=== PATIENT | female | born 1935 | race Caucasian/White ===

== ENCOUNTER 2021-12-30 09:39 | Inpatient (IN) | payer OTHER ==
[2021-12-30 10:20] LABS: SARS-CoV-2 Antigen Rapid Res Negative (Negative)
[2021-12-30] MEDS ORDERED: FUROSEMIDE 20 MG/ 2ML VIAL IV ONE (12:11)
--- NOTE | 2021-12-30 14:10 | RAD REPORT ---
EXAM DESCRIPTION: Len [facility] [place] (2 Views)12/30/2021 1:40 pm CLINICAL HISTORY: Atrial fibrillation COMPARISON: 2017 FINDINGS: The lungs appear clear of acute infiltrate. The heart is mildly to moderately enlarged
[2021-12-30 14:12] LABS: Hematocrit 44.2 % (36.0-45.0); MCV 94.3 fL (80-100); RBC Red Blood Cell Count 4.69 M/uL (3.86-4.86)
[2021-12-30 14:34] LABS: Albumin 3.8 g/dL (3.4-5.0); Bilirubin Total 0.7 mg/dL (0.2-1.0); Magnesium 2.2 mg/dL (1.8-2.4); Potassium 4.9 mmol/L (3.5-5.1); Protein, Total 7.7 g/dL (6.4-8.2)
[2021-12-30 14:42] VITALS: BMI 25.7
[2021-12-30 14:44] LABS: Thyroid Stimulating Hormone 1.04 uIU/mL (0.360-3.740)
[2021-12-30] MEDS ORDERED: ASPIRIN EC 81 MG TAB PO ONE (18:48)
--- NOTE | 2021-12-30 19:59 | HP ---
Date of Admission: 12/30/2021 Chief Complaint: Shortness of breath. History Of Present Illness: This is an 86-year-old very pleasant female patient, came into office to day with her daughter with 1-week history of worsening problem of shortness of breath. The patient r eports having shortness of breath at rest and with minimal daily activity, for example, walking 5 to 10 steps in the room also causes her to have shortness of breath. She denies any chest pain. No vom iting. No diarrhea. No blood in stool. After she was evaluated in the office, decision was made to admit her to hospital, with congestive heart failure problem. The patient has gained about 4-5 poun ds weight in last month or so. Allergies: TO PREVACID CAUSING DIARRHEA; EVISTA MADE HER TO FEEL HYPER; RISEDRONATE CAUSED BACK PAIN ; AND HYDROCHLOROTHIAZIDE, DETAILS UNKNOWN. Medications: Atorvastatin 20 mg daily, aspirin 81 mg daily, gabapentin 300 mg 4 times a day, metopro lol tartrate 50 mg 2 times a day, olmesartan 30 mg daily, pantoprazole 40 mg 2 times a day, tramadol 50 mg daily, hydrocodone 10 mg 3 times a day as needed. Review of Systems: Musculoskeletal: Chronic back pain and joint pain. All other systems reviewed and negative. Past Medical History: Significant for hypertension, hyperlipidemia, chronic atrial fibrillation, gas troesophageal reflux disease, diverticulosis, osteoarthritis at multiple sites, osteopenia. Past Surgical History: Watchman procedure done on April 02, 2021; partial hysterectomy; cervical s pine surgery; hip surgery; surgery for varicose vein of the right leg. Family History: Father , had lung cancer. Mother had coronary artery disease and aortic aneurys m. Brother also had aortic aneurysm. Son had aortic aneurysm. Social History: Negative for smoking. Use of alcohol very rarely. Physical Examination: VITAL SIGNS: Blood pressure 162/91, pulse 110, temperature 97.4, respiratory rate 18. Weight 132 po unds, height 63 inches. General: Awake, alert, oriented, not in distress. HEENT: Head atraumatic, normocephalic. Conjunctivae nonerythematous. Sclerae white. Mouth, no thr ush or edema noted. Ears/Nose, no mass, lesion, discharge noted. Neck: Supple. No JVD, lymph nodes, bruit, thyromegaly noted. Lungs: Diminished air entry in lower lung newman. Not using any accessory muscles of respiration at rest. Heart: Normal heart sounds, no murmur or gallop. Abdomen: Soft, bowel sounds normal. No guarding, rigidity, tenderness, mass, hepatosplenomegaly, dis tention, or bruit noted. Extremities: Bilateral leg trace edema involving lower half. Skin: No rash, ulcer, cellulitis. Lymphatics: No lymph node enlargement in neck, supraclavicular, infraclavicular region. Neuro: No focal neurological deficit. Chest: Unremarkable. External Genitalia: Deferred. Rectal: Deferred. Laboratory Data: Sodium 138, potassium 4.9, chloride 103, bicarb 30, BUN 15, creatinine 0.77, glucos e 104. Troponin 73.3. ProBNP 11,570. TSH 1.04. White count 7.2, hemoglobin 14.6, platelets 256. Chest x-ray did not show any acute changes. Impression: 1.Congestive heart failure. 2.Chronic atrial fibrillation. 3.Hypertension. 4.Hyperlipidemia. 5.Osteoarthritis, multiple sites. 6.Gastroesophageal reflux disease. 7.Diverticulosis. Plan: We will go ahead and admit the patient to hospital for further evaluation and management of th is problem. The patient is appropriate for inpatient and [facility] We will treat on telemetry. Consult rebeamer for abnormal cardiac enzymes. We will go ahead and give her aspirin 81 mg daily and Lovenox 40 mg subcu injection daily at bedtime. Continue home medications for blood pressure and cholesterol as per order. We will monitor blood pressure, if nece ssary, adjust antihypertensive medication. For gastroesophageal reflux disease, we will continue her proton pump inhibitor therapy. We will start her on IV Lasix 20 mg IV 2 times a day, monitor electr olytes, renal function. We will get echo with Doppler tomorrow. Details and plan of treatment discu ssed with the patient and her daughter who was at the office with her. I did talk to the patient reg arding advance directives and according to her decision, DNR order was written in the chart. RITA/MODL Voice ID: [id number]
[2021-12-30] MEDS: HYDROCODONE/APAP 10/325 TAB PO SCH (20:12)
[2021-12-30] MEDS: ENOXAPARIN 40 MG/0.4 ML SQ SCH (20:12)
[2021-12-30] MEDS: GABAPENTIN 300 MG CAP PO SCH (20:12)
[2021-12-30] MEDS: FUROSEMIDE 20 MG/ 2ML VIAL IV SCH (20:13)
[2021-12-30] MEDS: METOPROLOL TAR 50 MG TAB PO SCH (20:16)
[2021-12-31 01:09] VITALS: O2SAT 98
--- NOTE | 2021-12-31 07:07 | ECHO ---
HEIGHT: 5 ft 0 in WEIGHT: 132 lb 0 oz DATE OF STUDY: 12/30/[address]: Hima Austin MD 2-DIMENSIONAL: YES M.MODE: YES DOPPLER: YES COLOR FLOW: YES TDS: NO PORTABLE: YES DEFINITY: NO BUBBLE STUDY: NO DIAGNOSIS: CONGESTIVE HEART FAILURE CARDIAC HISTORY: CATHERIZATION: NO SURGERY: NO PROSTHETIC VALVE: NO PACEMAKER: NO MEASUREMENTS (cm) DIASTOLIC (NORMALS) SYSTOLIC (NORMALS) IVSd 1.2 (0.6-1.2) LA Diam 2.6 (1.9-4.0) LVEF 25-30% LVIDd 3.0 (3.5-5.7) LVIDs 2.2 (2.0-3.5) %FS % LVPWd 1.2 (0.6-1.2) Ao Diam 2.4 (2.0-3.7) 2 DIMENSIONAL ASSESSMENT: RIGHT ATRIUM: NORMAL LEFT ATRIUM: ENLARGED RIGHT VENTRICLE: NORMAL LEFT VENTRICLE: DEPRESSED EJECTION FRACTION TRICUSPID VALVE: MODERATE TRICUSPID REGURGITATION MITRAL VALVE: HEAVILY CALCIFIED VALVE PULMONIC VALVE: MILD PULMONIC INSUFFICIENCY AORTIC VALVE: MILD AORTIC INSUFFICIENCY PERICARDIAL EFFUSION: NONE AORTIC ROOT: NORMAL LEFT VENTRICULAR WALL MOTION: SEVERE GLOBAL HYPOKINESIS. APICAL DYSKINESIS. DOPPLER/COLOR FLOW: SEE BELOW. COMMENTS: SEVERELY DEPRESSED LEFT VENTRICULAR EJECTION FRACTION 25-30%. WALL MOTION ABNORMALITY ABOVE. HEAVILY CALCIFIED MITRAL VALVE WITH MODERATE MITRAL REGURGITATION. MILD AORTIC INSUFFICIENCY. MODERATE TRICUSPID REGURGITATION. SEVERE DIASTOLIC DYSFUNCTION WITH ELEVATED FILLING PRESSURES. SEVERE PULMONARY HYPERTENSION WITH RIGHT VENTRICUAR SYSTOLIC PRESSURE GREATER THAN 60mmHg. LEFT ATRIAL ENLARGEMENT. TECHNOLOGIST: SHIRA WADE
[2021-12-31 07:36] LABS: Magnesium 2.1 mg/dL (1.8-2.4); Potassium 3.8 mmol/L (3.5-5.1)
[2021-12-31] MEDS ORDERED: POTASSIUM CL SA 10 MEQ TAB PO ONE (08:05)
[2021-12-31] MEDS ORDERED: [UNRECOGNIZED DRUG - OTHER] PO SCH (09:00)
[2021-12-31] MEDS ORDERED: hydroCHLOROthiazide 12.5 MG CAP PO SCH (09:00)
[2021-12-31] MEDS ORDERED: HYDROCHLOROTHIAZIDE PO SCH (09:00)
[2021-12-31] MEDS ORDERED: OLMESARTAN PO SCH (09:00)
[2021-12-31] MEDS: ATORVASTATIN 20 MG TAB PO SCH (09:01)
[2021-12-31] MEDS: VALSARTAN 160 MG TAB PO SCH (09:01)
[2021-12-31] MEDS: GABAPENTIN 300 MG CAP PO SCH ×3 (09:01→20:25)
[2021-12-31] MEDS: HYDROCODONE/APAP 10/325 TAB PO SCH ×3 (09:01→20:25)
[2021-12-31] MEDS: ASPIRIN EC 81 MG TAB PO SCH (09:01)
[2021-12-31] MEDS: TRAMADOL HCL 50 MG TAB PO SCH (09:02)
[2021-12-31] MEDS: FUROSEMIDE 20 MG/ 2ML VIAL IV SCH ×2 (09:02→20:26)
[2021-12-31] MEDS: PANTOPRAZOLE 40MG TABLET PO SCH (09:07)
--- NOTE | 2021-12-31 20:08 | PN ---
Date of Progress Note: 12/31/2021 Subjective: The patient was seen this morning for followup. No new complaints or problems reported by her. She was lying in bed, not in distress. Objective: Vital Signs: Reviewed. HEENT: Unremarkable. Lungs: Clear to auscultation. No wheezing. No rales. Heart: Sounds normal. Irregular heart rhythm consistent with atrial fibrillation. Abdomen: Soft. Bowel sounds normal. No guarding, rigidity, tenderness, distention. Extremities: No leg edema. Impression: 1.Chronic atrial fibrillation. 2.Congestive heart failure. 3.Hypertension. Plan: We will go ahead and follow up with ship runner. Cardiac enzymes were abnormal yesterday. W e will repeat cardiac exam this morning. Continue Lovenox and aspirin per order. Continue Lasix and the patient will have echocardiogram done today. We will follow up on results and I will see her to jacqueline for followup. RITA/MODL Voice ID: [id number] Report ID: [id number]
[2021-12-31] MEDS: METOPROLOL TAR 50 MG TAB PO SCH (20:25)
[2021-12-31] MEDS: ENOXAPARIN 40 MG/0.4 ML SQ SCH (20:25)
[2021-12-31] MEDS: ENSURE ENLIVE 237 ML CAN PO SCH (20:27)
--- NOTE | 2022-01-01 06:02 | EKG ---
Test Date: 2021-12-30 Test Time: 13:07:37 Project Manager Senior: YUUSF MEASUREMENT RESULTS: Intervals: Rate: 98 ID: QRSD: [id number] QT: 380 QTc: 485 [place]: P: ID: [id number] T: 87 INTERPRETIVE STATEMENTS: Undetermined rhythm Left bundle branch block Abnormal ECG Compared to ECG 01/06/2017 22:47:32 Left bundle-branch block now present Sinus rhythm no longer present Ventricular premature complex(es) no longer present Short ID interval no longer present Electronically Signed On 01-01-22 06:00:04 CDT by Vincent Cordero
[2022-01-01 08:39] VITALS: BP 142/82; TEMP 97.2
[2022-01-01] MEDS: FUROSEMIDE 20 MG/ 2ML VIAL IV SCH (09:00)
[2022-01-01] MEDS: PANTOPRAZOLE 40MG TABLET PO SCH (09:23)
[2022-01-01] MEDS: VALSARTAN 160 MG TAB PO SCH (09:23)
[2022-01-01] MEDS: ATORVASTATIN 20 MG TAB PO SCH (09:23)
[2022-01-01] MEDS: TRAMADOL HCL 50 MG TAB PO SCH (09:23)
[2022-01-01] MEDS: ASPIRIN EC 81 MG TAB PO SCH (09:23)
[2022-01-01] MEDS: GABAPENTIN 300 MG CAP PO SCH (09:24)
[2022-01-01] MEDS: ENSURE ENLIVE 237 ML CAN PO SCH (09:24)
[2022-01-01] MEDS: HYDROCODONE/APAP 10/325 TAB PO SCH (09:24)
--- NOTE | 2022-01-02 02:21 | DS ---
Date of Discharge: 01/01/2022 Physical Examination: HEENT: Unremarkable. Lungs: Clear to auscultation. Heart: Sounds normal. Abdomen: Soft. Bowel sounds normal. No guarding, rigidity, tenderness, or distention. Extremities: No leg edema. Laboratory Data: White count 7.2, hemoglobin 14.6, and platelets 250. Chemistry: Yesterday sodium 136, potassium 3.8, chloride 100, bicarb 30, BUN 12, creatinine 0.72, glucose 100. Initial troponin 73.3, repeat troponin 89.1. ProBNP 11,570. Echocardiogram done during this hospitalization, which was done yesterday, shows ejection fraction 25%-30%. EKG had shown undetermined left bundle-branch block. Hospital Course: This is an 86-year-old pleasant female patient, admitted to the hospital with complaints of shortness of breath. Please see dictated H and P for more information. After patient was evaluated at the office, she was admitted to the hospital and the patient was admitted to the hospital with congestive heart failure problem. The patient has chronic atrial fibrillation and Cardiology consultation was requested. Echocardiogram showed significantly low ejection fraction. She received IV Lasix during this hospitalization and overall her condition has improved and shortness of breath has improved. Medically, she is stable for discharge. Final Diagnoses: 1. Congestive heart failure, chronic, systolic, with acute exacerbation. 2. Chronic atrial fibrillation. 3. Hypertension. 4. Hyperlipidemia. 5. Osteoarthritis, multiple sites. 6. Gastroesophageal reflux disease. 7. Diverticulosis. Discharge Medications And Instructions: 1. Continue prior home medication except stop olmesartan. 2. Start Entresto 24/26 mg 1 tablet 2 times a day. 3. Start furosemide 40 mg, take 1 tablet by mouth daily. 4. Follow up at my office next week. RITA/MODL Voice ID: [id number] Report ID: [id number] JOANA
--- NOTE | 2022-01-02 21:02 | CON ---
Date of Consultation: 12/31/2021 I saw the patient on 12/31/2021. Reason For Consultation: Congestive heart failure. History Of Present Illness: Ms. Nance is an 86-year-old woman who has a history of hypertension, ch ronic atrial fibrillation, who came in with dyspnea on exertion and congestive heart failure by x-ray . Normally follows up with Dr. Austin and Dr. Ramirez. Has had some PND and orthopnea and some pedal e atiya. Denied any fever or chills or cough. Denied any palpitation or syncope. She is already impro harpreet after the diuresis. Past Medical History: As stated above. Allergies: INCLUDE BACITRACIN AND MUPIROCIN. Review of Systems: Positive for being DNR. Social History: Negative. Medications: At home include aspirin, metoprolol, and losartan and hydrochlorothiazide. Physical Examination: General: When I saw her, she was in no acute distress. Vital Signs: Stable. She was in atrial fibrillation at a rate of 90. HEENT: Negative. Neck: Supple with no bruit, lymphadenopathy, JVD, or thyromegaly. Chest: Revealed some rales at both bases. Cardiac: Revealed atrial fibrillation with the sound of aortic sclerosis murmur, with no gallops or rubs. Abdomen: Benign. Extremities: Revealed only trace edema. Diagnostic Data: EKG showed atrial fibrillation, rate controlled. Troponin 73. BNP is 11,000, and chest x-ray shows CHF. Impression And Plan: 1.Possible acute on chronic diastolic congestive heart failure. 2.Hypertension. 3.Chronic atrial fibrillation. 4.DNR status. For now, I would continue aspirin, Lasix, Lovenox, and metoprolol. She is going to be on Lasix and _ and echocardiogram is pending. We will see what that shows. I discussed the case already with Dr. Austin. She is probably ready to go home either later on today or tomorrow. DOMINGUEZ/DOMI Voice ID: [id number] Report ID: [id number]
--- NOTE | 2022-01-03 10:57 | PN ---
Date of Progress Note: 01/01/2022 Ms. Nance was being followed for possible acute on chronic diastolic congestive heart failure, chron ic atrial fibrillation, and hypertension. Echocardiogram showed an ejection fraction of 25% to 30%, moderate mitral regurgitation, mild aortic insufficiency, severe diastolic dysfunction, severe pulmon jacky hypertension with right ventricular systolic pressure greater than 60 mmHg. On 01/01/2022, her v ital signs were stable. She was in atrial fibrillation at a rate of 88. O2 saturation was 98% on ro om air. She was feeling better. Last troponin was 89. Last medical regimen includes aspirin, Lipit or, Lasix, metoprolol, losartan, tramadol, and potassium. I think this is appropriate therapy for Ms Sp Nance's present regimen. She is already on carvedilol and on metoprolol. She is on an DUANE inhibi tor. She is on Lasix. She is a do not resuscitate. She looks comfortable with good O2 saturation a nd I think comfortable with her going home. We will see her in the office in the near future. The c ase was discussed with Dr. Austin. DOMINGUEZ/DOMI Voice ID: [id number] Report ID: [id number]
== END 2022-01-01 09:45 | disposition home or self-care (01) | DRG 291 ==
LOC: 2ND 11:47
PROVIDERS: ADMIT Internal Medicine; ATTEND Internal Medicine
DX: I11.0 Hypertensive heart disease with heart failure (principal); I50.23 Acute on chronic systolic (congestive) heart failure; I48.20 Chronic atrial fibrillation, unspecified; I08.0 Rheumatic disorders of both mitral and aortic valves; I27.20 Pulmonary hypertension, unspecified; G89.29 Other chronic pain; M54.9 Dorsalgia, unspecified; E78.5 Hyperlipidemia, unspecified; K21.9 Gastro-esophageal reflux disease without esophagitis; I44.7 Left bundle-branch block, unspecified; M19.90 Unspecified osteoarthritis, unspecified site; K57.90 Diverticulosis of intestine, part unspecified, without perforation or abscess without bleeding; Z66 Do not resuscitate; Z88.1 Allergy status to other antibiotic agents; Z79.82 Long term (current) use of aspirin; Z90.711 Acquired absence of uterus with remaining cervical stump; Z79.899 Other long term (current) drug therapy; Z20.822 Contact with and (suspected) exposure to COVID-19
CPT/HCPCS: 36415; 71046; 80048; 80053; 83735; 83880; 84443; 84484; 85025; 87811; 93005; 93306; 97116; 97161; 97530; J1650; J1940

== ENCOUNTER 2022-01-13 09:41 | Observation (INO) | payer OTHER ==
[2022-01-13 10:36] LABS: Absolute Lymphocytes (CBC) 0.7 K/uL (0.7-4.9); Hematocrit 38.8 % (36.0-45.0); Lymphocytes % 5.9 % (15.3-44.8); MCV 93.5 fL (80-100); MPV 7.7 fL (7.6-11.3); RBC Red Blood Cell Count 4.15 M/uL (3.86-4.86)
--- NOTE | 2022-01-13 10:40 | RAD REPORT ---
EXAM DESCRIPTION: RAD - Chest Single View - 01/13/2022 10:09 am CLINICAL HISTORY: DYSPNEA Chest pain. COMPARISON: Chest Pa And Lat (2 Views) dated 12/30/2021; Chest Single View dated 01/06/2017; Chest Sin gle View dated 11/12/2016; CHEST SINGLE VIEW dated 07/18/2014 FINDINGS: Portable technique limits examination quality. The lungs are emphysematous but grossly clear. The heart is normal in size. No displaced fractures.Pr ominent degenerative change both shoulders. IMPRESSION: COPD.
[2022-01-13 10:47] LABS: Protime INR 1.25
[2022-01-13 11:06] LABS: Potassium 3.8 mmol/L (3.5-5.1); Troponin High Sensitivity 9.9 pg/mL (<58.9)
--- NOTE | 2022-01-13 11:39 | RAD REPORT ---
EXAM DESCRIPTION: CTAbdomen Pelvis W Contrast - 01/13/2022 11:28 am CLINICAL HISTORY: Abdominal pain. diarrhea, weakness COMPARISON: Abdomen Pelvis W Contrast dated 11/13/2016; CT ABD PELVIS W CONTRAST dated 04/17/2014 TECHNIQUE: Biphasic CT imaging of the abdomen and pelvis was performed with 100 ml non-ionic IV cont rast. All CT scans are performed using dose optimization technique as appropriate and may include automated exposure control or mA/KV adjustment according to patient size. FINDINGS: The lung bases are clear. Mild fatty liver is present. No intra or extrahepatic biliary tree dilatation. No solid hepatic mass. Cholelithiasis is suspected in the contracted gallbladder. The spleen, pancreas, adrenal glands and kidneys are within normal limits. No bowel obstruction, free air, free fluid or abscess. Sigmoid diverticulosis coli without diverticul itis. The appendix is normal. Atherosclerosis of the abdominal aorta is present. No evidence of signi ficant lymphadenopathy. Severe osteoarthritis left hip. Right total hip arthroplasty is present. IMPRESSION: No acute intra-abdominal or pelvic finding. Cholelithiasis is likely present within contracted gallbladder.
--- NOTE | 2022-01-13 11:43 | EDPHYS ---
Physician Documentation [facility] Name: Noelle Nance Age: 86 yrs Sex: Female : 1935 Arrival Date: 01/13/2022 Time: 09:51 Bed 25 Private MD: ED Physician Tomi Lino HPI: 01/13 10:52 This 86 yrs old Female presents to ER via EMS with complaints of weakness, diarrhea. rn 10:52 The patient presents to the emergency department with diarrhea. Onset: The rn symptoms/episode began/occurred 2 day(s) ago. Possible causes: unknown. The symptoms are aggravated by nothing. The symptoms are alleviated by nothing. Associated signs and symptoms: Pertinent positives: diarrhea, Pertinent negatives: fever, GI bleeding. Severity of symptoms: At their worst the symptoms were moderate in the emergency department the symptoms are unchanged. The patient has experienced similar episodes in the past. The patient has been recently been admitted at [facility]. Pt reports diarrhea for 2-3 days, non-bloody, no abd pain, feels generalized weakness. Recent diagnosis of CHF, takes lasix once daily, compliant, still reports mild sob. No fever. . Historical: - Allergies: 09:56 Bactroban; ap3 - Home Meds: 14:38 amlodipine 5 mg tab 1 tab twice a day [Active]; atorvastatin 20 mg Oral tab [Active]; eh3 gabapentin 300 mg Oral cap [Active]; meloxicam 15 mg Oral tab [Active]; metoprolol tartrate 25 mg Oral tab [Active]; pantoprazole Oral [Active]; Prilosec 20 mg Oral cpDR [Active]; - PMHx: 09:56 Diverticulitis; Hypertension; ap3 - Immunization history:: Adult Immunizations up to date, Client reports receiving the 2nd dose of the Covid vaccine. - Social history:: Smoking status: Patient denies any tobacco usage or history of. Patient/guardian denies using alcohol. - Family history:: not pertinent. - Hospitalizations: : The patient was recently seen at [facility]. ROS: 10:52 Constitutional: Negative for fever, chills, and weight loss, Eyes: Negative for injury, rn pain, redness, and discharge, Neck: Negative for injury, pain, and swelling, Cardiovascular: Negative for chest pain, palpitations, and edema, Respiratory: + mild sob Abdomen/GI: + diarrhea MS/Extremity: Negative for injury and deformity, Skin: Negative for injury, rash, and discoloration, Neuro: Negative for headache, numbness, tingling, and seizure. Exam: 10:54 Constitutional: This is a well developed, well nourished patient who is awake, alert, rn and in no acute distress. Head/Face: Normocephalic, atraumatic. ENT: dry MM Cardiovascular: Regular rate and rhythm. No pulse deficits. Respiratory: No increased work of breathing, no retractions or nasal flaring. Abdomen/GI: Soft, non-tender Skin: Warm, dry MS/ Extremity: Pulses equal, no cyanosis. Neuro: Awake and alert, GCS 15 13:03 ECG was reviewed by the Attending Physician. rn Vital Signs: 09:52 BP 128 / 99; Pulse 106; Resp 19; Pulse Ox 96% on R/A; ap3 10:40 BP 116 / 97; Pulse 95; Resp 18; Pulse Ox 96% on R/A; ld1 12:03 BP 112 / 87; Pulse 86; Resp 18; Pulse Ox 97% on R/A; ld1 13:00 BP 112 / 64; Pulse 88; Resp 17; Pulse Ox 96% on R/A; eh3 14:00 BP 120 / 86; Pulse 95; Resp 20; Pulse Ox 96% on R/A; eh3 MDM: 09:51 Patient medically screened. rn 11:41 Differential diagnosis: gastritis, appendicitis, diverticulitis, viral gastroenteritis, rn gastroenteritis. Data reviewed: vital signs, nurses notes, lab test result(s), radiologic studies, CT scan, plain films, and as a result, I will admit patient. Counseling: I had a detailed discussion with the patient and/or guardian regarding: the historical points, exam findings, and any diagnostic results supporting the discharge/admit diagnosis, lab results, radiology results, the need for further work-up and treatment in the hospital. Response to treatment: the patient's symptoms have mildly improved after treatment, and as a result, I will admit patient. Admission orders: after a detailed discussion of the patient's condition and case, the admit orders are written by me. 01/13 09:54 Order name: Basic Metabolic Panel; Complete Time: 11:39 rn 01/13 09:54 Order name: CBC with Diff; Complete Time: 10:45 rn 01/13 09:54 Order name: NT PRO-BNP; Complete Time: 11:39 rn 01/13 09:54 Order name: PT-INR; Complete Time: 11:39 rn 01/13 09:54 Order name: Troponin HS; Complete Time: 11:39 rn 01/13 09:54 Order name: XRAY Chest (1 view); Complete Time: 10:45 rn 01/13 09:54 Order name: EKG; Complete Time: 09:55 rn 01/13 09:54 Order name: Cardiac monitoring; Complete Time: 10:03 rn 01/13 09:54 Order name: EKG - Nurse/Tech; Complete Time: 10:03 rn 01/13 09:54 Order name: IV Saline Lock; Complete Time: 10:03 rn 01/13 10:52 Order name: COVID-19/FLU A+B/RSV (Document "Date of Onset" if Symptomatic); Complete rn Time: 13:40 01/13 10:52 Order name: CT Abd/Pelvis - IV Contrast Only; Complete Time: 11:39 rn 01/13 13:12 Order name: Diet Regular; Complete Time: 13:14 em6 01/13 09:54 Order name: Labs collected and sent; Complete Time: 10:40 rn 01/13 09:54 Order name: O2 Per Protocol; Complete Time: 10:03 rn 01/13 09:54 Order name: O2 Sat Monitoring; Complete Time: 10:03 rn EC:03 Rate is 105 beats/min. Rhythm is irregularly irregular. QRS [place] is Normal. QRS rn interval is normal. QT interval is normal. No Q waves. T waves are Normal. No ST changes noted. Clinical impression: Atrial Fibrillation. Interpreted by me. Reviewed by me. Administered Medications: No medications were administered Disposition Summary: 01/13/22 11:42 Hospitalization Ordered Hospitalization Status: Observation rn Provider: Sydney Austin rn [facility] rn Condition: Stable rn Problem: new rn Symptoms: have improved rn Bed/Room Type: Standard rn Room Assignment: 232(01/13/22 19:32) cg Diagnosis - Persistent atrial fibrillation - with RVR rn - Diarrhea, unspecified rn - Unspecified combined systolic (congestive) and diastolic (congestive) heart failure rn - Dehydration rn Forms: - Medication Reconciliation Form rn - SBAR form rn Signatures: Dispatcher [employer] EDTomi Ray MD MD rn Garcia, Cindy, RN RN Lou Rogers RN RN [email or web address] Umm Rodriguez RN RN ld1 Catherine Joiner, RN RN eh3 Corrections: (The following items were deleted from the chart) 10:54 10:52 Hospitalizations: No recent hospitalization is reported. rn rn 10:54 10:52 Constitutional: Negative for fever, chills, and weight loss, Eyes: Negative for rn injury, pain, redness, and discharge, Neck: Negative for injury, pain, and swelling, Cardiovascular: Negative for chest pain, palpitations, and edema, Respiratory: + mild sob Abdomen/GI: + diarrhea MS/Extremity: Negative for injury and deformity, Skin: Negative for injury, rash, and discoloration, Neuro: Negative for headache, numbness, tingling, and seizure, rn 11:00 10:52 Constitutional: Negative for fever, chills, and weight loss, Eyes: Negative for rn injury, pain, redness, and discharge, Neck: Negative for injury, pain, and swelling, Cardiovascular: Negative for chest pain, palpitations, and edema, Respiratory: + mild sob Abdomen/GI: + diarrhea MS/Extremity: Negative for injury and deformity, Skin: Negative for injury, rash, and discoloration, Neuro: Negative for headache, numbness, tingling, and seizure, rn 19:32 11:42 rn mack
--- NOTE | 2022-01-13 11:43 | ER ---
Nurse's Notes [facility] Name: Noelle Nance Age: 86 yrs Sex: Female : 1935 Arrival Date: 01/13/2022 Time: 09:51 Bed 25 Private MD: Diagnosis: Persistent atrial fibrillation-with RVR;Diarrhea, unspecified;Unspecified combined systolic (congestive) and diastolic (congestive) heart failure;Dehydration Presentation: 01/13 09:52 Chief complaint: EMS states: they were called out for the patient complaining of ap3 weakness for 2-3 days, diarrhea for 2-3 days. when EMS arrived, patients FSBS was read as 'low'. EMS administered oral glucose. their 12 lead ekg showed afib with RVR. they administered 10mg and 4 mg zofran IV in an IV they established on the patients right arm. Coronavirus screen: At this time, the client does not indicate any symptoms associated with coronavirus-19. Ebola Screen: No symptoms or risks identified at this time. Initial Sepsis Screen: Does the patient meet any 2 criteria? HR > 90 bpm. Does the patient have a suspected source of infection? No. Patient's initial sepsis screen is negative. Risk Assessment: Do you want to hurt yourself or someone else? Patient reports no desire to harm self or others. Onset of symptoms was January 11, 2022. Care prior to arrival: Medication(s) given: Glucagon, zofran 4 mg, Cardizem 10mg IV initiated. 20 GA, in the right antecubital area. 09:52 Method Of Arrival: EMS: [facility] ap3 09:52 Acuity: JEANNA 2 ap3 Triage Assessment: 09:57 General: Appears uncomfortable, Behavior is cooperative, anxious. Pain: Denies pain. ap3 Neuro: Level of Consciousness is awake, alert, obeys commands, Oriented to person, place, time, Reports weakness for 2-3 days. Cardiovascular: Patient's skin is warm and dry. Cardiovascular: Rhythm is atrial fibrillation with rapid ventricular response. Respiratory: Airway is patent Respiratory effort is even, unlabored. GI: Reports diarrhea. Historical: - Allergies: 09:56 Bactroban; ap3 - Home Meds: 14:38 amlodipine 5 mg tab 1 tab twice a day [Active]; atorvastatin 20 mg Oral tab [Active]; eh3 gabapentin 300 mg Oral cap [Active]; meloxicam 15 mg Oral tab [Active]; metoprolol tartrate 25 mg Oral tab [Active]; pantoprazole Oral [Active]; Prilosec 20 mg Oral cpDR [Active]; - PMHx: 09:56 Diverticulitis; Hypertension; ap3 - Immunization history:: Adult Immunizations up to date, Client reports receiving the 2nd dose of the Covid vaccine. - Social history:: Smoking status: Patient denies any tobacco usage or history of. Patient/guardian denies using alcohol. - Family history:: not pertinent. - Hospitalizations: : The patient was recently seen at [facility]. Screenin:57 Abuse screen: Denies threats or abuse. Nutritional screening: No deficits noted. ap3 Tuberculosis screening: No symptoms or risk factors identified. 10:14 Fall Risk. ap3 Assessment: 10:40 Reassessment: See triage assessment. ld1 12:03 Reassessment: Patient appears in no apparent distress at this time. Patient and/or ld1 family updated on plan of care and expected duration. Pain level reassessed. Patient is alert, oriented x 3, equal unlabored respirations, skin warm/dry/pink. 13:00 Reassessment: Patient and/or family updated on plan of care and expected duration. Pain eh3 level reassessed. Patient is alert, oriented x 3, equal unlabored respirations, skin warm/dry/pink. 13:54 Reassessment: Patient and/or family updated on plan of care and expected duration. Pain eh3 level reassessed. Patient is alert, oriented x 3, equal unlabored respirations, skin warm/dry/pink. 20:20 Reassessment: Report called to 2nd floor. eh3 Vital Signs: 09:52 BP 128 / 99; Pulse 106; Resp 19; Pulse Ox 96% on R/A; ap3 10:40 BP 116 / 97; Pulse 95; Resp 18; Pulse Ox 96% on R/A; ld1 12:03 BP 112 / 87; Pulse 86; Resp 18; Pulse Ox 97% on R/A; ld1 13:00 BP 112 / 64; Pulse 88; Resp 17; Pulse Ox 96% on R/A; eh3 14:00 BP 120 / 86; Pulse 95; Resp 20; Pulse Ox 96% on R/A; eh3 ED Course: 09:51 Patient arrived in ED. rn 09:51 Tomi Lino MD is Attending Physician. rn 09:52 Lou Robledo, ITALIA is Primary Nurse. ap3 09:52 EKG done, by ED staff, reviewed by Tomi Lino MD. ap3 09:56 Triage completed. ap3 09:58 Arm band placed on left wrist. ap3 10:11 XRAY Chest (1 view) In Process Unspecified. EDMS 10:13 Patient has correct armband on for positive identification. Bed in low position. Call ap3 light in reach. Side rails up X2. Adult w/ patient. hall monitor on. Pulse ox on. NIBP on. Door closed. Noise minimized. 11:23 COVID-19/FLU A+B/RSV (Document "Date of Onset" if Symptomatic) Sent. ld1 11:30 CT Abd/Pelvis - IV Contrast Only In Process Unspecified. EDMS 11:42 Sydney Austin MD is Hospitalizing Provider. rn 13:54 Repositioned patient. Cleaned of incontinence. eh3 14:39 No provider procedures requiring assistance completed. Patient admitted, IV remains in eh3 place. 19:12 Primary Nurse role handed off by Lou Robledo RN mw2 20:17 Catherine Joiner, RN is Primary Nurse. eh3 Administered Medications: No medications were administered Medication: 10:13 VIS not applicable for this client. ap3 Outcome: 11:42 Decision to Hospitalize by Provider. rn 14:39 Admitted to ER Hold. Please see [facility] for further documentation. eh3 14:39 Condition: stable 14:39 Instructed on the need for admit. 20:49 Patient left the ED. eh3 Signatures: Dispatcher [employer] EDMS Tomi Lino MD MD rn Prokisch, Amanda RN RN ap3 Douglas Wilson mw2 Umm Rodriguez RN RN ld1 Catherine Joiner, ITALIA RN 3 Corrections: (The following items were deleted from the chart) 10:54 10:52 Hospitalizations: No recent hospitalization is reported. rn rn
[2022-01-13 12:12] LABS: SARS-COV-2 RT PCR NEGATIVE (NEGATIVE)
[2022-01-13] MEDS ORDERED: ACETAMINOPHEN 500 MG TAB PO PRN (14:42)
[2022-01-13] MEDS ORDERED: ONDANSETRON 4 MG/2 ML VIAL IV PRN (14:42)
[2022-01-13 16:03] VITALS: BMI 25.4
[2022-01-13] MEDS ORDERED: METOPROLOL TAR 50 MG TAB ONE (17:58)
[2022-01-13] MEDS ORDERED: METOPROLOL TAR 25 MG TAB PO SCH (18:00)
[2022-01-13] MEDS ORDERED: TRAMADOL HCL 50 MG TAB PO PRN (18:40)
[2022-01-13] MEDS ORDERED: SACUBITRIL/VALSARTAN 24/26 MG TAB PO SCH (21:00)
[2022-01-13] MEDS ORDERED: METOPROLOL TAR 50 MG TAB PO SCH (21:00)
[2022-01-13] MEDS ORDERED: GABAPENTIN 300 MG CAP PO SCH (21:00)
[2022-01-13] MEDS ORDERED: ATORVASTATIN 20 MG TAB PO SCH (21:00)
[2022-01-13] MEDS ORDERED: FUROSEMIDE 20 MG/ 2ML VIAL IV SCH (21:00)
[2022-01-13 21:08] VITALS: O2SAT 96
--- NOTE | 2022-01-14 02:06 | HP ---
Date of Admission: 01/13/2022 Chief Complaint: Feeling weak and diarrhea. History Of Present Illness: This is an 86-year-old female patient who was doing fine and in her norm al usual state of health until last 2-3 days she started to have frequent diarrhea stool. Denies any abdominal pain, nausea, or vomiting. No fever. The patient reports that she was feeling very weak with this and she came into emergency room and after she was evaluated, she was admitted to the [facility]. When I saw her, she was in the emergency room. Denies any chest pain or shortness of breath. Allergies: HYDROCHLOROTHIAZIDE, DETAILS UNKNOWN. PREVACID CAUSING DIARRHEA. EVISTA MADE HER FEEL H YPER AND RISEDRONATE CAUSED BACK PAIN. Medications: Atorvastatin 20 mg daily at bedtime, hydrocodone as needed for arthritis pain, aspirin 81 mg daily, furosemide 40 mg daily, Entresto 24/26 mg 1 tablet 2 times a day, gabapentin 300 mg take s 1 capsule in the morning and 2 capsules at bedtime, metoprolol 50 mg 2 times a day, pantoprazole 40 mg daily, and tramadol p.r.n. for back pain. Review of Systems: GI: As mentioned above. Constitutional: As mentioned above. All other systems reviewed and negative. Past Medical History: Significant for chronic systolic congestive heart failure, hypertension, hyper lipidemia, osteoarthritis at multiple sites, paroxysmal atrial fibrillation, and osteopenia. Past Surgical History: The patient had Watchman procedure done on April 02, 2021, hysterectomy, ce rvical spine surgery, right hip surgery, and surgery for varicose veins of leg. Family History: Father with lung cancer. Mother had coronary artery disease and aortic aneurys m. Brother had aortic aneurysm as well. Social History: Negative for smoking. Negative for alcohol use. Physical Examination: Vital Signs: Temperature 97.7, pulse 95, respiratory rate 19, blood pressure 124/73, oxygen saturati on 97%. Height 5 feet, weight 130 pounds. General: Awake, alert, oriented, not in distress. HEENT: Head atraumatic, normocephalic. Conjunctivae nonerythematous. Sclerae white. Mouth, no thr ush or edema noted. Ears/Nose, no mass, lesion, discharge noted. Neck: Supple. No JVD, lymph nodes, bruit, thyromegaly noted. Lungs: Bilateral good equal air entry. Clear to auscultation. No rhonchi. No rales. Heart: Normal heart sounds, no murmur or gallop. Abdomen: Soft, bowel sounds normal. No guarding, rigidity, tenderness, mass, hepatosplenomegaly, dis tention, or bruit noted. Extremities: No leg edema. No calf tenderness. Skin: No rash, ulcer, cellulitis. Lymphatics: No lymph node enlargement in neck, supraclavicular, infraclavicular region. Neuro: No focal neurological deficit. Chest: Unremarkable. External Genitalia: Deferred. Rectal: Deferred. Laboratory Data: CAT scan of the abdomen and pelvis done in emergency room was negative for any acut e changes. COVID-19 test negative. White count 11, hemoglobin 12.9, platelets 242. Sodium 131, pot assium 3.8, chloride 97, bicarb 26, BUN 21, creatinine 0.73, glucose 175. ProBNP 5003. Troponin 9.9 . Impression: 1.Acute gastroenteritis. 2.Chronic systolic heart failure. 3.Paroxysmal atrial fibrillation. 4.Hypertension. 5.Hyperlipidemia. 6.Gastroesophageal reflux disease. 7.Diverticulosis. 8.Osteoarthritis, multiple sites. 9.Hyponatremia. Plan: We will go ahead and admit the patient to hospital for further evaluation and management of th is problem. Patient is appropriate for inpatient and is expected to spend 2 midnights in hospital. For her congestive heart failure, we will continue her Lasix, but we will give IV Lasix. Continue En tresto and metoprolol per order. For her hyperlipidemia, continue her statin therapy per order. At this point for her acute gastroenteritis, she really does not need any specific intervention. We richard l monitor her overnight and depending on her condition, we will decide if further intervention like e mpiric antibiotic is needed or not depending on her condition tomorrow. Details and plan of treatmen t discussed with her. I will see her tomorrow morning for followup. I did talk to her regarding her advanced directives and as per patient's decision, DNR order will be written in the chart. RITA/MODL Voice ID: [id number]
[2022-01-14 05:18] VITALS: BP 134/80; TEMP 98.7
[2022-01-14 06:20] LABS: Absolute Lymphocytes (CBC) 0.9 K/uL (0.7-4.9); Lymphocytes % 8.4 % (15.3-44.8); MCV 93.6 fL (80-100); MPV 7.8 fL (7.6-11.3); RBC Red Blood Cell Count 4.06 M/uL (3.86-4.86)
[2022-01-14 06:41] LABS: Potassium 3.9 mmol/L (3.5-5.1)
[2022-01-14] MEDS ORDERED: PANTOPRAZOLE 40MG TABLET PO SCH (09:00)
[2022-01-14] MEDS ORDERED: ASPIRIN EC 81 MG TAB PO SCH (09:00)
[2022-01-14] MEDS ORDERED: GABAPENTIN 300 MG CAP PO SCH (09:00)
--- NOTE | 2022-01-14 19:04 | EKG ---
Test Date: 2022-01-13 Test Time: 09:48:45 Burr Picker: ALP MEASUREMENT RESULTS: Intervals: Rate: 105 SD: QRSD: 132 QT: 368 QTc: 486 [place]: P: SD: QRS: 7 T: 109 INTERPRETIVE STATEMENTS: Atrial fibrillation with rapid ventricular response Left bundle branch block Abnormal ECG Compared to ECG 12/30/2021 13:07:37 No significant changes Electronically Signed On 01-14-22 19:00:42 CE[employer] FEED DEPARTMENT SUPERVISOR by Vincent Cordero
--- NOTE | 2022-01-15 01:56 | DS ---
Date of Discharge: 01/14/2022 Disposition: Discharged to go home. Physical Examination: HEENT: Unremarkable. Lungs: Clear to auscultation. Heart: Sounds normal. Abdomen: Soft. Bowel sounds normal. No guarding, rigidity, tenderness, or distention. Extremities: No leg edema. Laboratory Data: Today white count is 10.6, hemoglobin 12.8, platelets 251. Yesterday white count w as 11, hemoglobin 12.9, platelets 242. Today sodium is 134, potassium 3.9, chloride 100, bicarb 29, BUN 15, creatinine 0.62, glucose 89. Yesterday sodium was 131, potassium 3.8, chloride 97, bicarb 26 , BUN 21, creatinine 0.73, glucose 175. Troponin 9.9. Hospital Course: This is an 86-year-old female patient admitted to the hospital after she came into emergency room yesterday with complaints of feeling weak and diarrhea. Please see dictated H and P f or more information. Her CAT scan of the abdomen and pelvis done in the emergency room was negative for any acute changes. After she came into emergency room, her condition remained stable. She did n ot have any further diarrhea. No abdominal pain, no nausea, no vomiting. She is tolerating diet deyanira y well. This morning when I saw her, she had no GI complaints, but she reported that she is really f eeling confused and does not know where she is. She did recognize me and answered all the questions appropriately, but just did not know where she was. I did inform her that she was on medical floor a t the hospital and not in the emergency room. Lately she is having some memory issues and I am amisha rned about some underlying dementia problem and I did inform her about that. She sees candice Benoit rologist regularly on outpatient basis and I have advised her that she should follow up with this candice barretoogist for dementia evaluation and management. Today she was discharged to go back home in stable condition. Final Diagnoses: 1.Acute gastroenteritis. 2.Chronic systolic heart failure. 3.Paroxysmal atrial fibrillation. 4.Hypertension. 5.Hyperlipidemia. 6.Gastroesophageal reflux disease. 7.Diverticulosis. 8.Osteoarthritis, multiple sites. 9.Hyponatremia. Discharge Medications And Instructions: 1.Continue all prior home medications. 2.Follow up with Dr. Gr for dementia evaluation and management. 3.Follow up at my office the week after next. RITA/MODL Voice ID: [id number] Report ID: [id number]
== END 2022-01-14 09:14 | disposition home or self-care (01) ==
LOC: ER 09:41 → ERHOLD 11:45 → 2ND 20:20
PROVIDERS: ADMIT Internal Medicine; ATTEND Internal Medicine
DX: K52.9 Noninfective gastroenteritis and colitis, unspecified (principal); I50.22 Chronic systolic (congestive) heart failure; I10 Essential (primary) hypertension; E87.1 Hypo-osmolality and hyponatremia; E86.0 Dehydration; E78.5 Hyperlipidemia, unspecified; M15.9 Polyosteoarthritis, unspecified; I48.0 Paroxysmal atrial fibrillation; M85.80 Other specified disorders of bone density and structure, unspecified site; K21.9 Gastro-esophageal reflux disease without esophagitis; K57.90 Diverticulosis of intestine, part unspecified, without perforation or abscess without bleeding; Z66 Do not resuscitate; Z20.822 Contact with and (suspected) exposure to COVID-19
CPT/HCPCS: 0241U; 36415; 71045; 74177; 80048; 83880; 84484; 85025; 85610; 93005; 99285; G0378; J1940; Q9967

== ENCOUNTER 2022-01-16 09:58 | Inpatient (IN) | payer OTHER ==
[2022-01-16] MEDS ORDERED: NA CHLORIDE 0.9% 1,000 ML ONE (10:17)
[2022-01-16 10:26] LABS: Absolute Lymphocytes (CBC) 0.7 K/uL (0.7-4.9); Hematocrit 39.6 % (36.0-45.0); Lymphocytes % 5.9 % (15.3-44.8); MCV 94.1 fL (80-100); MPV 7.6 fL (7.6-11.3); RBC Red Blood Cell Count 4.21 M/uL (3.86-4.86)
[2022-01-16] MEDS ORDERED: METOPROLOL TARTRATE 5 MG/5 ML INJ IV ONE (10:27)
[2022-01-16] MEDS ORDERED: DIGOXIN 0.25 MG/ML AMP ONE (10:28)
[2022-01-16 10:32] LABS: Protime INR 1.25
[2022-01-16 10:35] LABS: SARS-CoV-2 Antigen Rapid Res Negative (Negative)
--- NOTE | 2022-01-16 10:42 | RAD REPORT ---
EXAM DESCRIPTION: RAD - Chest Single View - 01/16/2022 10:31 am CLINICAL HISTORY: COUGH COMPARISON: Portable January 13, two view chest December 30 TECHNIQUE: AP portable chest image was obtained 01/16/2022 10:31 am . FINDINGS: Increased density has developed in the left apex. This was not present on December 30 imagi ng. Pneumonia is most likely. Mass lesion would not be suspected to develop over such a short interva l. Left apex acute infiltrate is superimposed on chronic interstitial lung disease. Trachea is midline. Heart size is upper normal, accentuated by shallow inspiration. No significant fa ilure or volume overload findings identifiable. No measurable pleural effusion and no pneumothorax. N o acute bone finding. Advanced right shoulder joint degenerative changes are present. No acute aortic finding. Arterial tree calcifications are present. IMPRESSION: Left apex pneumonia superimposed on chronic interstitial lung disease.
[2022-01-16 11:02] LABS: Albumin 2.2 g/dL (3.4-5.0); Bilirubin Direct 0.4 mg/dL (0-0.2); Bilirubin Total 0.7 mg/dL (0.2-1.0); Potassium 4.2 mmol/L (3.5-5.1); Protein, Total 6.4 g/dL (6.4-8.2); Thyroid Stimulating Hormone 1.06 uIU/mL (0.360-3.740); Troponin High Sensitivity 6.8 pg/mL (<58.9)
[2022-01-16] MEDS ORDERED: NA CHLORIDE 0.9% 100 ML IV ONE (11:47)
[2022-01-16] MEDS ORDERED: PIPERACIL/TAZO 3.375 GM VIAL IV ONE (11:47)
[2022-01-16] MEDS ORDERED: AZITHROMYCIN 250 MG TAB ONE (13:17)
--- NOTE | 2022-01-16 13:21 | EDPHYS ---
Physician Documentation [facility] Name: Noelle Nance Age: 86 yrs Sex: Female : 1935 Arrival Date: 01/16/2022 Time: 10:00 Bed 4 Private MD: ED Physician Clayton Cuello HPI: 01/16 13:15 This 86 yrs old Female presents to ER via EMS with complaints of General peter Weakness. 13:15 The patient presents with a history of irregular heart beat, heart racing. Context: The peter symptoms occur at rest. Onset: The symptoms/episode began/occurred 2 day(s) ago. Duration: The patient or guardian reports a single episode, that is still ongoing. Modifying factors: The symptoms are aggravated by light activity. fast hr, weak. The patient or guardian reports cough, difficulty breathing, flu symptoms. Severity of symptoms: At their worst the symptoms were mild, moderate, in the emergency department the symptoms are unchanged. Associated signs and symptoms: The patient has no apparent associated signs or symptoms. Historical: - Allergies: 10:00 Bactroban; mb9 - Home Meds: 10:33 amlodipine 5 mg tab 1 tab twice a day [Active]; atorvastatin 20 mg Oral tab [Active]; mb9 gabapentin 300 mg Oral cap [Active]; 11:22 metoprolol tartrate 50 mg oral tab 2 times per day [Active]; furosemide 40 mg oral tab mb9 1 tab [Active]; pantoprazole oral [Active]; Entresto oral [Active]; tramadol 50 mg oral tab [Active]; hydrocodone-acetaminophen 10-325 mg oral tab [Active]; - PMHx: 10:00 Diverticulitis; Hypertension; mb9 10:33 Dementia; mb9 10:34 Congestive heart failure; mb9 - Immunization history:: Adult Immunizations up to date. - Social history:: Smoking status: Patient denies any tobacco usage or history of. - Family history:: not pertinent. ROS: 13:15 Constitutional: Negative for fever, chills, and weight loss, Eyes: Negative for injury, peter pain, redness, and discharge, ENT: Negative for injury, pain, and discharge, Neck: Negative for injury, pain, and swelling, Abdomen/GI: Negative for abdominal pain, nausea, vomiting, diarrhea, and constipation, Back: Negative for injury and pain, : Negative for injury, bleeding, discharge, and swelling, MS/Extremity: Negative for injury and deformity, Skin: Negative for injury, rash, and discoloration, Neuro: Negative for headache, weakness, numbness, tingling, and seizure, Psych: Negative for depression, anxiety, suicide ideation, homicidal ideation, and hallucinations, Allergy/Immunology: Negative for hives, rash, and allergies, Endocrine: Negative for neck swelling, polydipsia, polyuria, polyphagia, and marked weight changes, Hematologic/Lymphatic: Negative for swollen nodes, abnormal bleeding, and unusual bruising. 13:15 Cardiovascular: Positive for chest pain, palpitations. 13:15 Respiratory: Positive for cough, shortness of breath, at rest. Exam: 13:16 Constitutional: This is a well developed, well nourished patient who is awake, alert, peter and in no acute distress. Head/Face: Normocephalic, atraumatic. Eyes: Pupils equal round and reactive to light, extra-ocular motions intact. Lids and lashes normal. Conjunctiva and sclera are non-icteric and not injected. Cornea within normal limits. Periorbital areas with no swelling, redness, or edema. ENT: Nares patent. No nasal discharge, no septal abnormalities noted. Tympanic membranes are normal and external auditory canals are clear. Oropharynx with no redness, swelling, or masses, exudates, or evidence of obstruction, uvula midline. Mucous membranes moist. Neck: Trachea midline, no thyromegaly or masses palpated, and no cervical lymphadenopathy. Supple, full range of motion without nuchal rigidity, or vertebral point tenderness. No Meningismus. Chest/axilla: Normal chest wall appearance and motion. Nontender with no deformity. No lesions are appreciated. Respiratory: Lungs have equal breath sounds bilaterally, clear to auscultation and percussion. No rales, rhonchi or wheezes noted. No increased work of breathing, no retractions or nasal flaring. Abdomen/GI: Soft, non-tender, with normal bowel sounds. No distension or tympany. No guarding or rebound. No evidence of tenderness throughout. Back: No spinal tenderness. No costovertebral tenderness. Full range of motion. Female : Normal external genitalia. Skin: Warm, dry with normal turgor. Normal color with no rashes, no lesions, and no evidence of cellulitis. MS/ Extremity: Pulses equal, no cyanosis. Neurovascular intact. Full, normal range of motion. Neuro: Awake and alert, GCS 15, oriented to person, place, time, and situation. Cranial nerves II-XII grossly intact. Motor strength 5/5 in all extremities. Sensory grossly intact. Cerebellar exam normal. Normal gait. Psych: Awake, alert, with orientation to person, place and time. Behavior, mood, and affect are within normal limits. 13:16 ECG was reviewed by the Attending Physician. 13:18 ECG was reviewed by the Attending Physician. [facility] Vital Signs: 10:00 BP 115 / 67; Pulse 125; Resp 22; Temp 98.0(O); Pulse Ox 100% ; Weight 59.87 kg (R); mb9 Height 5 ft. 0 in. (152.40 cm) (R); 10:25 BP 108 / 76; Pulse 115; Resp 16 S; Pulse Ox 97% on R/A; aa5 10:30 BP 100 / 58; Pulse 122; aa5 10:36 BP 96 / 44; Pulse 107; aa5 10:44 BP 114 / 62; Pulse 98; Resp 16 S; Pulse Ox 96% on R/A; aa5 11:27 BP 118 / 61; Pulse 87; Resp 20; Pulse Ox 95% on R/A; mb9 13:01 BP 105 / 49; Pulse 88; Resp 16; Pulse Ox 98% on R/A; Pain 0/10; mb9 14:21 BP 107 / 54; Pulse 82; Resp 16; Pulse Ox 100% on R/A; Pain 0/10; mb9 16:17 BP 101 / 77; Pulse 78; Resp 16; Pulse Ox 100% on R/A; mb9 10:00 Body Mass Index 25.78 (59.87 kg, 152.40 cm) mb9 MDM: 10:00 Patient medically screened. [facility] 13:21 Differential diagnosis: arrythmia, dehydration. Differential Diagnosis sepsis, flu, peter Bronchitis Influenza Upper Respiratory Infection Sinusitis Pharyngitis Otitis Media Viral Syndrome Pneumonia. Data reviewed: vital signs, nurses notes, lab test result(s), EKG, radiologic studies, CT scan, plain films. Data interpreted: court monitor: rate is 88 beats/min, rhythm is atrial fibrillation, Pulse oximetry: on room air is 98 %. Test interpretation: by ED physician or midlevel provider: ECG, plain radiologic studies. Counseling: I had a detailed discussion with the patient and/or guardian regarding: the historical points, exam findings, and any diagnostic results supporting the discharge/admit diagnosis, lab results, radiology results, the need for further work-up and treatment in the hospital. 01/16 10:01 Order name: Basic Metabolic Panel; Complete Time: 13:03 [facility] 01/16 10:01 Order name: CBC with Diff; Complete Time: 10:50 [facility] 01/16 10:01 Order name: LFT's; Complete Time: 13:03 [facility] 01/16 10:01 Order name: Magnesium; Complete Time: 13:03 [facility] 01/16 10:01 Order name: NT PRO-BNP; Complete Time: 13:03 [facility] 01/16 10:01 Order name: PT-INR; Complete Time: 10:50 [facility] 01/16 10:01 Order name: Troponin HS; Complete Time: 13:03 [facility] 01/16 10:01 Order name: XRAY Chest (1 view); Complete Time: 10:50 [facility] 01/16 10:01 Order name: TSH; Complete Time: 13:03 [facility] 01/16 10:01 Order name: Lipase; Complete Time: 13:03 [facility] 01/16 10:01 Order name: SARS RAPID; Complete Time: 10:50 [facility] 01/16 10:51 Order name: Lactate w/ 2H reflex if indic.; Complete Time: 13:03 [facility] 01/16 10:51 Order name: Blood Culture Adult (2) [facility] 01/16 10:01 Order name: EKG; Complete Time: 10:02 [facility] 01/16 10:01 Order name: Cardiac monitoring; Complete Time: 10:15 [facility] 01/16 10:01 Order name: EKG - Nurse/Tech; Complete Time: 10:15 [facility] 01/16 10:01 Order name: IV Saline Lock; Complete Time: 10:15 [facility] 01/16 10:01 Order name: Labs collected and sent; Complete Time: 10:17 [facility] 01/16 10:01 Order name: O2 Per Protocol; Complete Time: 10:15 [facility] 01/16 12:58 Order name: Diet Heart Healthy; Complete Time: 12:58 01/16 13:27 Order name: CONS Physician Consult [facility] 11/18 10:01 Order name: O2 Sat Monitoring; Complete Time: 10:15 peter 01/16 11:39 Order name: EKG - Nurse/Tech: repeat ekg; Complete Time: 12:58 eb 01/16 13:11 Order name: IV Saline Lock - Large Bore [facility] EC:16 Rate is 113 beats/min. Rhythm is irregularly irregular. QRS [place] is Normal. [place] interval peter is normal. QRS interval is normal. QT interval is normal. No Q waves. T waves are Normal. No ST changes noted. Clinical impression: Abnormal EKG without significant change and Atrial Fibrillation. Interpreted by me. Reviewed by me. 13:18 Rate is 87 beats/min. Rhythm is irregularly irregular. QRS [place] is Normal. [place] interval peter is normal. QRS interval is normal. QT interval is normal. No Q waves. T waves are Normal. No ST changes noted. Clinical impression: Abnormal EKG without significant change and Atrial Fibrillation. Interpreted by me. Reviewed by me. Administered Medications: 10:20 Drug: NS 0.9% 1000 ml Route: IV; Rate: 125 ml/hr; Site: right antecubital; aa5 10:23 Not Given (Pt reports she took Metoprolol 50mg PO MD ANGELICA was notified.): Lopressor ss (metoprolol TARTRATE) 50 mg PO once 10:25 Drug: Lopressor (metoprolol) 2.5 mg Route: IVP; Site: right antecubital; aa5 10:31 Drug: Lopressor (metoprolol) 2.5 mg Route: IVP; Site: right antecubital; aa5 10:39 Drug: Digoxin 0.5 mg Route: IVP; Site: right antecubital; aa5 12:07 Drug: Zosyn (piperacillin-tazobactam) 3.375 grams Route: IVPB; Infused Over: 60 mins; mb9 Site: right antecubital; 13:10 Follow up: Response: No adverse reaction; IV Status: Completed infusion mb9 13:10 Drug: NS 0.9% 500 ml Route: IV; Rate: bolus; Site: right antecubital; mb9 13:20 Drug: Zithromax (azithromycin) 500 mg Route: PO; mb9 14:10 Follow up: Response: No adverse reaction mb9 14:20 Drug: Lovenox (enoxaparin) 1 mg/kg Route: Sub-Q; Site: left lower abdomen; mb9 Disposition Summary: 01/16/22 13:20 Hospitalization Ordered Hospitalization Status: Inpatient Admission peter Provider: Hima Austin cha Location: Telemetry/MedSurg (Inpatient) peter Condition: Fair peter Problem: new peter Symptoms: have improved peter Bed/Room Type: Standard peter Room Assignment: 402(01/16/22 15:41) dw Diagnosis - Paroxysmal atrial fibrillation - with RVR peter - Weakness peter - Other pneumonia, unspecified organism - LEFT APEX peter - Do not resuscitate peter Forms: - Medication Reconciliation Form peter - SBAR form peter Signatures: Dispatcher [employer] EDPrema Echevarria RN RN Clayton Lombardo MD MD cha Calderon, Audri, RN RN aa5 Fanny Medina, Sheridan Colbert RN RN mb9 Racquel Hester RN ss Corrections: (The following items were deleted from the chart) 11:27 10:33 Home Meds: meloxicam 15 mg Oral tab; mb9 mb9 11:27 10:33 Home Meds: metoprolol tartrate 25 mg Oral tab; mb9 mb9 11:27 10:33 Home Meds: pantoprazole Oral; mb9 mb9 11:27 10:33 Home Meds: Prilosec 20 mg Oral cpDR; mb9 mb9 15:41 13:20 peter dw
--- NOTE | 2022-01-16 13:21 | ER ---
Nurse's Notes [facility] Name: Noelle Nance Age: 86 yrs Sex: Female : 1935 Arrival Date: 01/16/2022 Time: 10:00 Bed 4 Private MD: Diagnosis: Paroxysmal atrial fibrillation-with RVR;Weakness;Other pneumonia, unspecified organism-LEFT APEX;Do not resuscitate Presentation: 01/16 10:00 Initial Sepsis Screen: Does the patient meet any 2 criteria? No. Patient's initial mb9 sepsis screen is negative. Does the patient have a suspected source of infection? No. Patient's initial sepsis screen is negative. Risk Assessment: Do you want to hurt yourself or someone else? Patient reports no desire to harm self or others. Onset of symptoms was January 13, 2022. 10:00 Acuity: JEANNA 2 mb9 10:29 Chief complaint: EMS states: pt couldn't get out of chair to go to her appointment to mb9 see Dr. Ramirez due to being so weak. Pt states having increased weakness over 2-3 days. Coronavirus screen: Client denies travel out of the [place] in the last 14 days. Ebola Screen: Patient denies travel to an Ebola-affected area in the 21 days before illness onset. 10:29 Method Of Arrival: EMS: [facility] mb9 Triage Assessment: 10:34 General: Appears in no apparent distress. comfortable, Behavior is calm, cooperative, mb9 appropriate for age. Pain: Denies pain. Historical: - Allergies: 10:00 Bactroban; mb9 - Home Meds: 10:33 amlodipine 5 mg tab 1 tab twice a day [Active]; atorvastatin 20 mg Oral tab [Active]; mb9 gabapentin 300 mg Oral cap [Active]; 11:22 metoprolol tartrate 50 mg oral tab 2 times per day [Active]; furosemide 40 mg oral tab mb9 1 tab [Active]; pantoprazole oral [Active]; Entresto oral [Active]; tramadol 50 mg oral tab [Active]; hydrocodone-acetaminophen 10-325 mg oral tab [Active]; - PMHx: 10:00 Diverticulitis; Hypertension; mb9 10:33 Dementia; mb9 10:34 Congestive heart failure; mb9 - Immunization history:: Adult Immunizations up to date. - Social history:: Smoking status: Patient denies any tobacco usage or history of. - Family history:: not pertinent. Screenin:00 Abuse screen: Denies threats or abuse. Nutritional screening: No deficits noted. mb9 Tuberculosis screening: No symptoms or risk factors identified. Fall Risk None identified. Assessment: 10:05 General: Appears in no apparent distress. comfortable, Behavior is calm, cooperative, mb9 appropriate for age. 10:05 Pain: Denies pain. Neuro: Level of Consciousness is awake, alert, obeys commands, mb9 Oriented to person, place, time, situation, Appropriate for age. Cardiovascular: Denies chest pain, shortness of breath, Heart tones S1 S2 present Rhythm is atrial fibrillation with rapid ventricular response. Respiratory: Airway is patent Respiratory effort is even, unlabored, GI: Abdomen is flat, Abd is soft and non tender X 4 quads. Reports nausea, lack of appetite. : No signs and/or symptoms were reported regarding the genitourinary system. EENT: No signs and/or symptoms were reported regarding the EENT system. Derm: Skin is fragile, is thin, Skin is dry, Skin is normal, Skin temperature is warm. Musculoskeletal: Range of motion: intact in all extremities. 11:30 General: Appears in no apparent distress. comfortable, Behavior is calm, cooperative. mb9 Pain: Denies pain. Cardiovascular: Rhythm is atrial fibrillation. Respiratory: Airway is patent Respiratory effort is even, unlabored. Derm: Skin is pink, warm \T\ dry. 13:09 General: Appears in no apparent distress. comfortable. Pain: Denies pain. Neuro: Level mb9 of Consciousness is awake, alert, obeys commands, Oriented to person, place, time, situation, Appropriate for age. Cardiovascular: Rhythm is atrial fibrillation. Respiratory: Airway is patent. Derm: Skin is pink, warm \T\ dry. 14:20 Pain: Denies pain. Neuro: Level of Consciousness is awake, alert, obeys commands, mb9 Oriented to person, place, time, situation, Appropriate for age. Cardiovascular: Rhythm is atrial fibrillation. Respiratory: Airway is patent Respiratory effort is even, unlabored. Derm: Skin is pink, warm \T\ dry. 16:00 Reassessment: No changes from previously documented assessment. mb9 16:18 Reassessment: attempted to call report to admitting nurse. mb9 17:13 General: Appears in no apparent distress. comfortable, Behavior is calm, cooperative, mb9 appropriate for age. Pain: Denies pain. Neuro: Level of Consciousness is awake, alert, obeys commands, Oriented to person, place, time, situation, Appropriate for age. Cardiovascular: Heart tones S1 S2 present Rhythm is atrial fibrillation. Respiratory: Airway is patent Respiratory effort is even, unlabored. Derm: Skin is pink, warm \T\ dry. 17:17 Reassessment: attempted to call report to admitting nurse. mb9 17:54 Reassessment: Report given to admitting nurse ITALIA Rodas. mb9 Vital Signs: 10:00 BP 115 / 67; Pulse 125; Resp 22; Temp 98.0(O); Pulse Ox 100% ; Weight 59.87 kg (R); mb9 Height 5 ft. 0 in. (152.40 cm) (R); 10:25 BP 108 / 76; Pulse 115; Resp 16 S; Pulse Ox 97% on R/A; aa5 10:30 BP 100 / 58; Pulse 122; aa5 10:36 BP 96 / 44; Pulse 107; aa5 10:44 BP 114 / 62; Pulse 98; Resp 16 S; Pulse Ox 96% on R/A; aa5 11:27 BP 118 / 61; Pulse 87; Resp 20; Pulse Ox 95% on R/A; mb9 13:01 BP 105 / 49; Pulse 88; Resp 16; Pulse Ox 98% on R/A; Pain 0/10; mb9 14:21 BP 107 / 54; Pulse 82; Resp 16; Pulse Ox 100% on R/A; Pain 0/10; mb9 16:17 BP 101 / 77; Pulse 78; Resp 16; Pulse Ox 100% on R/A; mb9 10:00 Body Mass Index 25.78 (59.87 kg, 152.40 cm) mb9 ED Course: 10:00 Patient arrived in ED. peter 10:00 Clayton Cuello MD is Attending Physician. peter 10:00 Arm band placed on. mb9 10:00 Placed in gown. Bed in low position. Call light in reach. Side rails up X 1. Client 9 placed on continuous cardiac and pulse oximetry monitoring. NIBP monitoring applied. traffic monitor specialist on. 10:00 Maintain EMS IV. Dressing intact. Good blood return noted. Site clean \T\ dry. Gauge \T\ mb 9 site: 20g right AC. 10:00 EKG done, by pharmacy laboratory technician. reviewed by Clayton Cuello MD. mb9 10:14 Sheridan Mcnally, RN is Primary Nurse. mb9 10:33 XRAY Chest (1 view) In Process Unspecified. EDMS 10:33 Triage completed. mb9 11:49 Blood Culture Adult (2) Sent. mb9 12:07 Blood Culture Adult (2) Sent. mb9 13:19 Hima Austin MD is Hospitalizing Provider. peter Administered Medications: 10:20 Drug: NS 0.9% 1000 ml Route: IV; Rate: 125 ml/hr; Site: right antecubital; aa5 10:23 Not Given (Pt reports she took Metoprolol 50mg PO MOTOR BOSS, MD was notified.): Lopressor ss (metoprolol TARTRATE) 50 mg PO once 10:25 Drug: Lopressor (metoprolol) 2.5 mg Route: IVP; Site: right antecubital; aa5 10:31 Drug: Lopressor (metoprolol) 2.5 mg Route: IVP; Site: right antecubital; aa5 10:39 Drug: Digoxin 0.5 mg Route: IVP; Site: right antecubital; aa5 12:07 Drug: Zosyn (piperacillin-tazobactam) 3.375 grams Route: IVPB; Infused Over: 60 mins; mb9 Site: right antecubital; 13:10 Follow up: Response: No adverse reaction; IV Status: Completed infusion mb9 13:10 Drug: NS 0.9% 500 ml Route: IV; Rate: bolus; Site: right antecubital; mb9 13:20 Drug: Zithromax (azithromycin) 500 mg Route: PO; mb9 14:10 Follow up: Response: No adverse reaction mb9 14:20 Drug: Lovenox (enoxaparin) 1 mg/kg Route: Sub-Q; Site: left lower abdomen; mb9 Medication: 10:00 VIS not applicable for this client. mb9 Outcome: 13:20 Decision to Hospitalize by Provider. peter 18:12 Patient left the ED. bp Signatures: Dispatcher [employer] EDNV Clayton Cuello MD MD cha Calderon, Audri, RN RN aa5 Rodriguez Santos RN RN bp Sheridan Mcnally RN RN mb9 Racquel Hester RN ss Corrections: (The following items were deleted from the chart) 10:51 10:00 Acuity: JEANNA 3 mb9 9 11: 10:33 Home Meds: meloxicam 15 mg Oral tab; 9 9 11: 10:33 Home Meds: metoprolol tartrate 25 mg Oral tab; 9 9 11: 10:33 Home Meds: pantoprazole Oral; 9 mb9 11: 10:33 Home Meds: Prilosec 20 mg Oral cpDR; [facility] mb9
[2022-01-16] MEDS ORDERED: ENOXAPARIN 60 MG/0.6 ML SQ ONE (14:15)
[2022-01-16] MEDS: LEVALBUTEROL 1.25 MG/3 ML NEB NEB SCH ×2 (18:39→20:20)
[2022-01-16] MEDS ORDERED: ONDANSETRON 4 MG/2 ML VIAL IV PRN (18:39)
[2022-01-16] MEDS ORDERED: ACETAMINOPHEN 325 MG TABLET PO PRN (18:55)
[2022-01-16] MEDS: PIPER TAZO 3.375 GM in NA CHLORIDE 0.9% 100 ML IV SCH (20:06)
[2022-01-16] MEDS: DIGOXIN 0.25 MG/ML AMP IV SCH (20:07)
[2022-01-16] MEDS: SACUBITRIL/VALSARTAN 24/26 MG TAB PO SCH (20:07)
[2022-01-16] MEDS: METOPROLOL TAR 25 MG TAB PO SCH (20:07)
[2022-01-16 20:17] LABS: Digoxin Level 1.5 ng/mL (0.80-2.00)
[2022-01-16] MEDS: HYDROCODONE/APAP 10/325 TAB PO SCH (20:52)
[2022-01-16] MEDS: GABAPENTIN 300 MG CAP PO SCH (20:52)
[2022-01-16] MEDS ORDERED: ENOXAPARIN 60 MG/0.6 ML SQ SCH (21:00)
[2022-01-16] MEDS ORDERED: SACUBITRIL/VALSARTAN 24/26 MG TAB PO SCH (21:00)
[2022-01-16 22:13] VITALS: BMI 25.4
[2022-01-17] MEDS: DIGOXIN 0.25 MG/ML AMP IV SCH (00:32)
[2022-01-17] MEDS: PIPER TAZO 3.375 GM in NA CHLORIDE 0.9% 100 ML IV SCH ×3 (00:32→18:14)
[2022-01-17] MEDS: LEVALBUTEROL 1.25 MG/3 ML NEB NEB SCH ×4 (01:55→19:50)
[2022-01-17 05:53] LABS: Absolute Lymphocytes (CBC) 1.4 K/uL (0.7-4.9); Hematocrit 35.9 % (36.0-45.0); Lymphocytes % 14.4 % (15.3-44.8); MCV 93.5 fL (80-100); MPV 7.7 fL (7.6-11.3); RBC Red Blood Cell Count 3.84 M/uL (3.86-4.86)
[2022-01-17 06:02] LABS: Potassium 4.1 mmol/L (3.5-5.1)
[2022-01-17] MEDS: METOPROLOL TAR 25 MG TAB PO SCH ×2 (06:16→18:15)
[2022-01-17] MEDS: HYDROCODONE/APAP 10/325 TAB PO SCH ×3 (08:36→20:54)
[2022-01-17] MEDS: ASPIRIN EC 81 MG TAB PO SCH (08:37)
[2022-01-17] MEDS: GABAPENTIN 300 MG CAP PO SCH ×3 (08:37→20:54)
[2022-01-17] MEDS: ATORVASTATIN 20 MG TAB PO SCH (08:37)
[2022-01-17] MEDS: AZITHROMYCIN 250 MG TAB PO SCH (08:37)
[2022-01-17] MEDS: FUROSEMIDE 40 MG TABLET PO SCH (08:37)
[2022-01-17] MEDS: SACUBITRIL/VALSARTAN 24/26 MG TAB PO SCH ×2 (08:37→20:55)
[2022-01-17] MEDS: PANTOPRAZOLE 40MG TABLET PO SCH (08:37)
[2022-01-17] MEDS: ENOXAPARIN 40 MG/0.4 ML SQ SCH (08:37)
[2022-01-17] MEDS: TRAMADOL HCL 50 MG TAB PO SCH (08:38)
[2022-01-17] MEDS: LOPERAMIDE HCL 2 MG CAPSULE PO PRN ×2 (14:10→20:55)
--- NOTE | 2022-01-17 19:13 | EKG ---
Test Date: 2022-01-16 Test Time: 10:11:06 Communications Advisor: DAVID MEASUREMENT RESULTS: Intervals: Rate: 113 AL: QRSD: 122 QT: 348 QTc: 477 [place]: P: AL: QRS: 39 T: 239 INTERPRETIVE STATEMENTS: Atrial fibrillation with rapid ventricular response Left bundle branch block Abnormal ECG Compared to ECG 01/16/2022 10:08:42 No significant changes Electronically Signed On 01-17-22 19:10:34 ACADEMIC ASSISTANT by Vincent Cordero
--- NOTE | 2022-01-17 19:14 | EKG ---
Test Date: 2022-01-16 Test Time: 10:08:42 Public Health Dietitian: DAVID MEASUREMENT RESULTS: Intervals: Rate: 113 [place]: QRSD: 124 QT: 344 QTc: 471 [place]: P: AR: QRS: 48 T: 92 INTERPRETIVE STATEMENTS: Atrial fibrillation with rapid ventricular response Left bundle branch block Abnormal ECG Compared to ECG 01/13/2022 09:48:45 No significant changes Electronically Signed On 01-17-22 19:10:35 BAKERY MACHINE MECHANIC by Vincent Cordero
[2022-01-18] MEDS: PIPER TAZO 3.375 GM in NA CHLORIDE 0.9% 100 ML IV SCH ×3 (00:25→17:09)
[2022-01-18] MEDS: LEVALBUTEROL 1.25 MG/3 ML NEB NEB SCH ×4 (02:00→20:00)
[2022-01-18] MEDS: METOPROLOL TAR 25 MG TAB PO SCH ×2 (05:39→17:10)
[2022-01-18] MEDS: ASPIRIN EC 81 MG TAB PO SCH (08:26)
[2022-01-18] MEDS: SACUBITRIL/VALSARTAN 24/26 MG TAB PO SCH ×2 (08:26→20:44)
[2022-01-18] MEDS: HYDROCODONE/APAP 10/325 TAB PO SCH ×3 (08:26→20:45)
[2022-01-18] MEDS: AZITHROMYCIN 250 MG TAB PO SCH (08:27)
[2022-01-18] MEDS: FUROSEMIDE 40 MG TABLET PO SCH (08:28)
[2022-01-18] MEDS: GABAPENTIN 300 MG CAP PO SCH ×3 (08:28→20:46)
[2022-01-18] MEDS: ENOXAPARIN 40 MG/0.4 ML SQ SCH (08:28)
[2022-01-18] MEDS: PANTOPRAZOLE 40MG TABLET PO SCH (08:28)
[2022-01-18] MEDS: ATORVASTATIN 20 MG TAB PO SCH (08:28)
[2022-01-18] MEDS: TRAMADOL HCL 50 MG TAB PO SCH (08:29)
--- NOTE | 2022-01-18 08:43 | RAD REPORT ---
EXAM DESCRIPTION: RAD - Chest Single View - 01/18/2022 6:22 am CLINICAL HISTORY: pneumonia Chest pain. COMPARISON: Chest Single View dated 01/16/2022; Chest Single View dated 01/13/2022; Chest Pa And Lat (2 Views) dated 12/30/2021; Chest Single View dated 01/06/2017 FINDINGS: Portable technique limits examination quality. Mild bilateral pulmonary opacities show no slight worsening since 01/16/2022 prior study. The heart i s moderately enlarged. No displaced fractures.Aortic atherosclerosis. IMPRESSION: Mild worsening is seen in lung aeration since comparative study.
[2022-01-18 13:50] LABS: C.diff Antigen/Toxin Ag neg : Tox neg (NEG : NEG)
--- NOTE | 2022-01-18 15:50 | PN ---
Date of Progress Note: 01/18/2022 Subjective: The patient was seen this morning for followup. No new complaints or problems reported by her. She was lying in bed, not in distress. No shortness of breath. No chest pain. No nausea. No vomiting. Objective: Vital Signs: Reviewed. HEENT: Examination unremarkable. Lungs: Clear to auscultation. Not using any accessory muscles of respiration. Heart: Sounds normal. Abdomen: Soft. Bowel sounds normal. No guarding, rigidity, tenderness, distention. Extremities: No leg edema. Laboratory Data: Chest x-ray from today shows slight worsening of left upper lobe pneumonia. Impression: 1.Pneumonia. 2.Atrial fibrillation. 3.Osteoarthritis, multiple sites. 4.Chronic systolic heart failure. Plan: We will go ahead and continue current medication. Continue Lovenox per order. Continue curre nt metoprolol and current antibiotics. We will repeat chest x-ray tomorrow. Social service is worki ng with family to set up hospice care upon discharge with possibility of discharge tomorrow depending on chest x-ray. RITA/MODL Voice ID: [id number] Report ID: [id number]
--- NOTE | 2022-01-18 22:51 | CON ---
Date of Consultation: 01/17/2022 Reason For Consultation: Atrial fibrillation. History Of Present Illness: Ms. Nance is 86. She is a do not resuscitate. Has chronic systolic co ngestive heart failure with an ejection fraction of 30%. Severe pulmonary hypertension with right ve ntricular systolic pressure at 60 mmHg. She has chronic atrial fibrillation, dyslipidemia, came in w ith pneumonia and severe weakness. This is her third admission in the hospital. In the last month, there was a consideration by the family to place the patient on hospice, really did not have any card iac complaints except for her generalized weakness. Past Medical History: As stated above. Allergies: SHE IS ALLERGIC TO MUPIROCIN AND BACITRACIN. Review of Systems: Negative. Social History: Negative. Family History: Negative. Medications: At home include Entresto, Lasix, metoprolol, and Lipitor. Physical Examination: General: She appeared to be in no acute distress at rest. Vital Signs: Stable. She was in atrial fibrillation, rate controlled at 70. HEENT: Negative. Neck: Supple without any bruit, lymphadenopathy, JVD, or thyromegaly. Chest: Reveals some crackles in the left base of the lung, the right was clear. Cardiac: Showed atrial fibrillation with tricuspid regurgitation murmur. Abdomen: Benign. Extremities: Revealed no clubbing, cyanosis, or edema. Diagnostic Data: EKG showed atrial fibrillation. Chest x-ray showed pneumonia, on chronic interstit ial changes. Creatinine is 0.54. BNP is 4480. Impression And Plan: 1.Chronic atrial fibrillation on metoprolol, digoxin, Lovenox. 2.Chronic systolic congestive heart failure, ejection fraction of 30% with severe pulmonary hyperten stephany. She is on aspirin. She is on Lasix. She is on Entresto and metoprolol. 3.New onset pneumonia, on antibiotics. 4.Dyslipidemia, on Lipitor. 5.Elevated BNP secondary to congestive heart failure. The case was discussed with Dr. Austin. Family is suggesting hospice care, which was discussed with Dr. Austin. From a cardiovascular standpoint, I agree with her present regimen. I do not have any further input regarding her cardiac therapy. No f urther cardiac workup recommended at this point. I will be available for questions if the need arise s. DOMINGUEZ/DOMI Voice ID: [id number] Report ID: [id number]
[2022-01-19] MEDS: PIPER TAZO 3.375 GM in NA CHLORIDE 0.9% 100 ML IV SCH ×2 (00:12→08:43)
[2022-01-19] MEDS: LEVALBUTEROL 1.25 MG/3 ML NEB NEB SCH ×2 (02:00→08:10)
[2022-01-19] MEDS: METOPROLOL TAR 25 MG TAB PO SCH (05:36)
--- NOTE | 2022-01-19 07:07 | RAD REPORT ---
EXAM DESCRIPTION: RAD - Chest Single View - 01/19/2022 5:45 am CLINICAL HISTORY: pneumonia COMPARISON: January 18, January 16, December 30 TECHNIQUE: AP portable chest image was obtained 01/19/2022 5:45 am . FINDINGS: Left apex lung parenchymal opacification remains. Pneumonia remains the most likely etiolo gy. There has been no improvement. Left apex findings not present on the December 30 study. Malignancy would not develop over such a short interval. Chronic interstitial lung disease is present. Heart si ze and pulmonary vasculature are stable. No measurable pleural effusion and no pneumothorax. No acute bony abnormality seen. No acute aortic findings suspected. IMPRESSION: Left upper lobe pneumonia showing no improvement from comparison January 18 study.
--- NOTE | 2022-01-19 07:51 | HP ---
Date of Admission: 01/17/2022 Chief Complaint: Feeling weak. History Of Present Illness: This is an 86-year-old female patient, who lives at home, was brought into emergency room with complaints of feeling weak. After she arrived in the emergency room, she was admitted to the hospital with left upper lobe pneumonia. When I saw her this morning, her daughter was present with her at bedside and yesterday when she was in the emergency room, I also communicated with her son. The patient denies any cough, congestion, not coughing up any mucus. Review of Systems: Constitutional: As mentioned above. Psychiatry: Has some anxiety problem lately as she is worrying about lots of different things. All other systems reviewed and negative. Allergies: HYDROCHLOROTHIAZIDE, DETAILS UNKNOWN. PREVACID CAUSING DIARRHEA. EVISTA MADE HER FEEL HYPER AND RISEDRONATE CAUSED BACK PAIN. Medications: Atorvastatin 20 mg daily at bedtime, hydrocodone as needed for arthritis pain, aspirin 81 mg daily, furosemide 40 mg daily, Entresto 24/26 mg 1 tablet 2 times a day, gabapentin 300 mg takes 1 capsule in the morning and 2 capsules at bedtime, metoprolol 50 mg 2 times a day, pantoprazole 40 mg daily, and tramadol p.r.n. for back pain. Past Medical History: Significant for chronic systolic congestive heart failure, hypertension, hyperlipidemia, osteoarthritis at multiple sites, paroxysmal atrial fibrillation, and osteopenia. Past Surgical History: The patient had Watchman procedure done on April 02, 2021, hysterectomy, cervical spine surgery, right hip surgery, and surgery for varicose veins of leg. Family History: Father with lung cancer. Mother had coronary artery disease and aortic aneurysm. Brother had aortic aneurysm as well. Social History: Negative for smoking. Negative for alcohol use. Physical Examination: Vital Signs: When she came into emergency room; temperature 98, pulse 125, respiratory rate 22, blood pressure 115/67, oxygen saturation 100%. Height 5 feet weight 130 pounds. General: Awake, alert, oriented, not in distress. HEENT: Head atraumatic, normocephalic. Conjunctivae nonerythematous. Sclerae white. Mouth, no thrush or edema noted. Ears/Nose, no mass, lesion, discharge noted. Neck: Supple. No JVD, lymph nodes, bruit, thyromegaly noted. Lungs: The patient not in any respiratory distress. Presence of some fine rales noted in left upper lobe posteriorly. Heart: Normal heart sounds, no murmur or gallop. Abdomen: Soft, bowel sounds normal. No guarding, rigidity, tenderness, mass, hepatosplenomegaly, distention, or bruit noted. Extremities: No leg edema. No calf tenderness. Skin: No rash, ulcer, cellulitis. Lymphatics: No lymph node enlargement in neck, supraclavicular, infraclavicular region. Neuro: No focal neurological deficit. Chest: Unremarkable. External Genitalia: Deferred. Rectal: Deferred. Laboratory Data: Yesterday; white count 11.2, hemoglobin 13.1, platelets 327. This morning; white count 9.6, hemoglobin 12.2, platelets 317. Chemistry yesterday; sodium 131, potassium 4.2, chloride 98, bicarb 29, BUN 21, creatinine 0.81, glucose 153. Liver function tests; AST 42, ALT 57, alkaline phosphatase 270. ProBNP 4480. TSH 1.06. This morning; sodium 133, potassium 4.1, chloride 99, bicarb 27, BUN 15, creatinine 0.54, glucose 93. Digoxin level 1.5. Chest x-ray; left upper lobe pneumonia. Impression: 1. Pneumonia. 2. Chronic atrial fibrillation. 3. Chronic systolic heart failure. 4. Hypertension. 5. Hyperlipidemia. 6. Gastroesophageal reflux disease. 7. Diverticulosis. 8. Osteoarthritis, multiple sites. Plan: Admit the patient to hospital for further evaluation and management of this problem. The patient is appropriate for inpatient and is expected to spend 2 midnights in hospital. DNR order was written in the chart as per the patient's decision regarding advance directive. In the event of cardiopulmonary arrest, she does not want any CPR, defibrillation or ventilator support. We will go ahead and give empiric antibiotics, which is azithromycin and Zosyn. We will repeat chest x-ray tomorrow. Her antihypertensive medication will be continued. We will continue aspirin. We will also continue her pain medications that she take for her chronic pain. The patient and her son and daughter they all have expressed desire to go home with hospice care and I agree with that. 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 Lately, the patient has shown signs symptoms of dementia problem. Overall prognosis is guarded. I did talk to her about choices of hospice agencies and the patient's daughter informed me that they had used [facility] with her dad and that is the agency that they would like to use, so I will go ahead and have Social Service help us make that arrangements with possibility of discharge to go home tomorrow with hospice. RITA/MODL Voice ID: [id number] JOANA
[2022-01-19] MEDS: SACUBITRIL/VALSARTAN 24/26 MG TAB PO SCH (08:40)
[2022-01-19] MEDS: AZITHROMYCIN 250 MG TAB PO SCH (08:40)
[2022-01-19] MEDS: GABAPENTIN 300 MG CAP PO SCH (08:40)
[2022-01-19] MEDS: HYDROCODONE/APAP 10/325 TAB PO SCH (08:40)
[2022-01-19] MEDS: ENOXAPARIN 40 MG/0.4 ML SQ SCH (08:40)
[2022-01-19] MEDS: ATORVASTATIN 20 MG TAB PO SCH (08:41)
[2022-01-19] MEDS: FUROSEMIDE 40 MG TABLET PO SCH (08:41)
[2022-01-19] MEDS: ASPIRIN EC 81 MG TAB PO SCH (08:41)
[2022-01-19] MEDS: TRAMADOL HCL 50 MG TAB PO SCH (08:42)
[2022-01-19] MEDS: PANTOPRAZOLE 40MG TABLET PO SCH (08:43)
[2022-01-19 11:30] VITALS: BP 154/73; TEMP 98; O2SAT 93
--- NOTE | 2022-01-19 15:36 | EKG ---
Test Date: 2022-01-16 Test Time: 12:56:00 Tab Cutter: BEN MEASUREMENT RESULTS: Intervals: Rate: 87 ME: QRSD: 124 QT: 374 QTc: 450 [place]: P: ME: QRS: -1 T: 146 INTERPRETIVE STATEMENTS: Atrial fibrillation Left bundle branch block Abnormal ECG Compared to ECG 01/16/2022 10:11:06 No significant changes Electronically Signed On 01-19-22 15:31:59 [employer]ER [employer] by Beka Ramirez
--- NOTE | 2022-01-20 00:48 | DS ---
Date of Discharge: 01/19/2022 Disposition: Discharged to go home with hospice care. Physical Examination: HEENT: Unremarkable. Lungs: Clear to auscultation. Heart: Sounds normal. Abdomen: Soft. Bowel sounds normal. No guarding, rigidity, tenderness, or distention. Extremities: No leg edema. Laboratory Data: Upon admission; white count 11.2, hemoglobin 13.1, platelets 327, and day after adm ission; white count 9.6, hemoglobin 12.2, platelets 317, bicarb 29, BUN 21, creatinine 0.81, glucose 153. Liver function tests unremarkable except AST 42. ProBNP 4480. TSH 1.060. Day after admission ; sodium 133, potassium 4.1, chloride 99, bicarb 27, BUN 15, creatinine 0.54, glucose 93. Discharge Medications/instructions: 1.Continue all prior home medications. 2.Patient to be admitted to hospice care and hospice faculty i on call medical assistant to take over care. 3.Take Augmentin 500 mg 2 times a day and azithromycin 250 mg daily for 1 week. Hospital Course: This is an 86-year-old pleasant female patient admitted to the hospital with compla ints of generalized weakness and not feeling good. Please see dictated H and P for more information. After patient was evaluated in the emergency room, she was admitted to the hospital with pneumonia problem. The patient had left upper lobe pneumonia and she was admitted to the hospital. Her other chronic medical problems remained stable. This is her third admission in the hospital in last 2 to 3 weeks and the patient and her son and daughter, they all expressed desire to go home with hospice ca re and I did talk to the patient and her daughter over the weekend regarding choice of hospice agency and the patient's had used a [facility] hospice agency in the past and does the same agency that [facility] would like to use it for the patient, so social Service was consulted to make arrangements for hos pice care upon discharge from the hospital and if the disease progresses as expected, the patient's l alyse expectancy is less than 6 months. Hospice diagnosis is chronic systolic heart failure and senile dementia. Final Diagnoses: 1.Pneumonia. 2.Chronic systolic heart failure. 3.Hyponatremia. 4.Senile dementia. 5.Hypertension. 6.Osteoarthritis, multiple sites. 7.Hyperlipidemia. RITA/MODL Voice ID: [id number] Report ID: [id number]
== END 2022-01-19 12:39 | disposition hospice, home (50) | DRG 194 ==
LOC: ER 09:58 → ERHOLD 13:23 → 4TH 17:54
PROVIDERS: ADMIT Internal Medicine; ATTEND Internal Medicine
DX: J18.9 Pneumonia, unspecified organism (principal); E87.1 Hypo-osmolality and hyponatremia; I50.22 Chronic systolic (congestive) heart failure; I11.0 Hypertensive heart disease with heart failure; I27.20 Pulmonary hypertension, unspecified; E78.5 Hyperlipidemia, unspecified; I48.0 Paroxysmal atrial fibrillation; M19.09 Primary osteoarthritis, other specified site; K57.90 Diverticulosis of intestine, part unspecified, without perforation or abscess without bleeding; F03.90 Unspecified dementia, unspecified severity, without behavioral disturbance, psychotic disturbance, mood disturbance, and anxiety; Z66 Do not resuscitate; Z51.5 Encounter for palliative care; Z88.1 Allergy status to other antibiotic agents; Z79.899 Other long term (current) drug therapy; Z20.822 Contact with and (suspected) exposure to COVID-19
CPT/HCPCS: 0241U; 36415; 71045; 74177; 80048; 80076; 80162; 82565; 83605; 83690; 83735; 83880; 84443; 84484; 85025; 85610; 87040; 87324; 87811; 93005; 94640; 96365; 96372; 96375; 99284; 99285; G0378; J1160; J1650; J1940; J2543; J7030; J7614; Q0144; Q9967